=== PATIENT | male | born 1975 | race Two or more races ===

== ENCOUNTER 2025-01-28 15:53 | Emergency (ER) | payer MEDICAID, SELFPAY ==
[2025-01-28 16:01] VITALS: BP 164/91; PULSE 81; RESP 18; TEMP 37.4; O2SAT 98; BMI 34.6
--- NOTE | 2025-01-28 16:08 | EDNOTE_ITS ---
ED Male Genitalurinary RME/HPI General Chief complaint: Urogenital-Male Stated complaint: Urinating small amount Time Seen by Provider: 01/28/25 16:04 Arrival date/time: 01/28/25 15:53 RME / HPI RME / HPI Narrative: 49-year-old male patient came in for evaluation regarding acute urinary retention. Patient told me that since early this morning he is having difficulty urinating, it is just dripping urine, severity scant, associated with bladder distention and discomfort. Patient has been having worsening problem with urination for since July. Noticed some swelling to the glans penis. Denies any fever. Denies any dysuria. No vomiting no back pain no other complaints noted no medications taken prior to arrival. Related Data Allergies Allergy/AdvReac Type Severity Reaction Status Date / Time No Known Drug Allergies Allergy Verified 01/28/25 15:58 Review of Systems Review of Systems Narrative Review of Systems: Review of system reviewed and within normal limits except mentioned in HPI ED Exam Narrative Physical exam: VITAL SIGNS: Reviewed. GENERAL APPEARANCE: Alert and interactive, follows commands, no acute distress, HEAD AND FACE: Non-traumatic. ENT: PERRL, pink conjunctivitis, eyelid no trauma, Mucous membrane moist. NECK: Supple, nontender, no nuchal rigidity. CHEST: No tenderness, no crepitus, no paradoxical movement, no retractions. LUNGS: Clear, well ventilated, symmetric, no rales, no wheezing, no ronchi, no stridor, good breath sounds bilaterally. HEART: Regular rate, regular rhythm, no murmur, no gallops. ABDOMEN: Soft, positive bowel sounds, nondistended, no guarding, nontender, no rebound, no masses, RECTAL: Deferred. GENITAL: Suprapubic distention, with discomfort and tenderness, glans penis is slightly swollen, with palpable mass, and the meatus is closed. NEUROLOGICAL: Gross motor function intact sensory function intact, Appropriate for age. MUSCULOSKELETAL: low back nontender, full range of motion. EXTREMITIES: Nontender, full range of motion. SKIN: Color pink, dry, no rash, no lacerations, no abrasions, no contusions. LYMPHATICS: Deferred. Course Quality Measures none Orders Category Date Time Status CT Screening NOW Care 01/28/25 16:51 Active Baez [Urinary Catheter] Care 01/28/25 16:[address] abdomen pelvis w con Stat Exams 01/28/25 16:51 Completed US extremity nonvascular LMTD Stat Exams 01/28/25 16:58 Completed CBC [CBC] Stat Lab 01/28/25 16:12 Completed CMP [Comprehensive Metabolic Panel] Stat Lab 01/28/25 16:12 Completed UA, C/S IF [Urinalysis, C/S if Indicated] Stat Lab 01/28/25 16:57 Completed Vital Signs Vital signs: Vital Signs Temperature 99.3 F 01/28/25 16:01 Pulse Rate 81 01/28/25 16:01 Respiratory Rate 18 01/28/25 16:01 Blood Pressure 164/91 H 01/28/25 16:01 Pulse Oximetry (%) 98 01/28/25 16:01 Oxygen Delivery Method Room Air 01/28/25 16:01 Urogenital - Male MDM Narrative MDM Narrative:: 49-year-old male patient came in for evaluation regarding acute urinary retention. Patient told me that since early this morning he is having difficulty urinating, it is just dripping urine, severity scant, associated with bladder distention and discomfort. Denies any fever. Denies any dysuria. No vomiting no back pain no other complaints noted no medications taken prior to arrival. I have difficulty inserting a Baez catheter used Cypriot 14 Baez, however I was able to advance it. Draining more than 500 cc of clear urine. Patient's laboratory workup all came back unremarkable including ultrasound of the penis did not show anything and CT scan of the abdomen and pelvis also are within normal limits. Results discussed with the patient. Patient was advised to follow-up with urologist. Patient agrees with the plan Patient data External records reviewed:: None Clinical information provided by:: patient Social determinants that could affect healthcare access:: none Patient has the following chronic illnesses:: None How is presenting disease/condition affected by chronic disease/condition?: no chronic disease Evaluation data The following diagnostics were reviewed and interpreted by me:: lab results and radiology exam(s) Lab and/or radiology exams considered but not ordered:: None Interpretation Summary: See results MDM Medications / Prescriptions Medications or Prescriptions considered but not ordered:: None Medication administrations:: None Consultations Consultation(s) initiated? (list below): No Diagnosis Urogenital Male Differential Diagnosis: urinary tract infection, urethritis and other (Acute urinary retention) Most likely diagnosis given after review of the tests above:: Acute urinary retention, urinary meatus problem Admission Indicated Admission indicated?: not indicated Admission Request Was there a request for admission?: No Disposition Plan Disposition Plan: Discharge Discharge Attestation Discharge Attestation: The patient and all family members were given an opportunity to ask questions and understood the discharge instructions. Discharge instructions specifically effects, indications for sooner follow up or return to the emergency department, and the expected course of current diagnosis. Patient condition: Stable Discharge Plan Plan Patient Disposition: HOME (Self Care) Discharge Disposition comment: Stable Problem List Clinical Impression: Acute urinary retention Patient/Caregiver Discharge Instructions Discharge Activity: activity as tolerated Education Materials: ED Urinary Retention, Male Additional Instructions: Thank you for the opportunity for serving you today. You are stable for discharged . You are advised to: Follow-up with your PCP in 1 to 2 days Return to ED for worsening of symptoms Increase oral fluids As your PCP to refer you to a urologist regarding your urethral meatus problem, and further evaluation. Post Baez catheter care Print Language: Albanian Stand Alone Forms: Carlene Award Info., Patient Portal Info Letter HAJA/MARLEY Supervising Physician HJAA/MARLEY Supervising Physician: MD Yoko
[2025-01-28 16:26] LABS: Basophils # (Auto) 0.0 Thou/mm3 (0.0-0.2); Basophils % (Auto) 0 % (0-2.5); Eosinophils # (Auto) 0.1 Thou/mm3 (0.0-0.5); Eosinophils % (Auto) 1 % (0-10); Hematocrit 41.0 % (41.0-53.0); Hemoglobin 13.8 g/dL (13.5-16.0); Immature Granulocytes Auto 0.03 Thou/mm3 (0.00-0.00); Lymphocytes # (Auto) 1.8 Thou/mm3 (1.0-4.8); Lymphocytes % (Auto) 18 % (10-50); Mean Corpuscular HGB Conc 33.7 g/dl (31.0-37.0); Mean Corpuscular Hemoglobin 28.4 pg (25.0-35.0); Mean Corpuscular Volume 84 fL (80-100); Monocytes # (Auto) 0.5 Thou/mm3 (0.0-0.8); Monocytes % (Auto) 5 % (0-12); Neutrophils # (Auto) 7.5 Thou/mm3 (1.8-7.7); Neutrophils % (Auto) 75 % (37-80); Nucleated Red Blood Cell # 0.00 Thou/mm3 (0.00-0.00); Nucleated Red Blood Cell % 0 /100 WBC (0); Platelet Count 254 Thou/mm3 (140-440); RDW Standard Deviation 37.9 fL (35.1-43.9); Red Blood Count 4.86 Miln/mm3 (4.50-5.90); White Blood Count 10.0 Thou/mm3 (3.8-10.6)
[2025-01-28 16:47] LABS: Alanine Aminotransferase 21 U/L (10-49); Albumin, Serum 4.8 gm/dL (3.5-5.0); Albumin/Globulin Ratio 1.7 (1.2-2.2); Alkaline Phosphatase 125 U/L (46-116); Anion Gap 9 (7-16); Aspartate Amino Transferase 19 U/L (0-34); BUN/Creatinine Ratio 16 Ratio (12-20); Bilirubin,Total 0.5 mg/dL (0.3-1.2); Blood Urea Nitrogen 13 mg/dL (9-23); Calcium 9.0 mg/dL (8.3-10.6); Calcium (Corrected) 9.0 mg/dL (8.5-10.1); Carbon Dioxide 26.6 mMol/L (20.0-31.0); Chloride 105 mMol/L (98-107); Creatinine (Component) 0.8 mg/dL (0.6-1.3); Estimated Creatinine Clearance 126.1 mL/min (>60); Globulin 2.9 gm/dL (2.3-3.5); Glucose 148 mg/dL (74-106); Osmolality,Calculated 284 (275-295); Potassium 3.6 mMol/L (3.4-5.1); Sodium 141 mMol/L (136-145); Total Protein 7.7 gm/dL (5.7-8.2); eGFR > 60 See Note
--- NOTE | 2025-01-28 16:51 | XR_ITS ---
Examination: CT abdomen with intravenous contrast CT pelvis with intravenous contrast 2-D coronal reconstructions 2-D sagittal reconstructions Date and time of exam:January 28, 2025 1931 hours INDICATIONS: Difficulty urinating today. CTDI: vol (mGy) 25.5 DLP: (mGycm) 1030 Technique: Multiple axial sections of the abdomen and pelvis have been obtained. 64 slice high-resolution scanner used. 3 mm axial sections have been obtained, post intravenous injection 60 cc [id number] 2-D sagittal, coronal reconstructions obtained. Low dose protocols were performed. One or more of the following dose reduction techniques were used; automated exposure control, adjustment of the mA and/or KV according to patient size, use of iterative reconstruction technique. Findings: No focal liver or splenic lesions No gallstones No pancreatic mass No renal or ureteral calculi, no hydronephrosis Aorta normal size Normal appendix No bowel obstruction or diverticulitis Baez catheter within the bladder, significant bladder wall thickening measuring up to 19 mm 2 mm calcification likely in the prostatic urethra sagittal image 112 IMPRESSION: No renal or ureteral calculi, no hydronephrosis is Normal appendix Significant thickening of the bladder wall, likely cystitis 2 mm calcification, likely in the prostatic urethra adjacent to the urinary Baez catheter
--- NOTE | 2025-01-28 16:58 | XR_ITS ---
Examination: Ultrasound soft tissue extremity, penis TECHNIQUE: Longoria scale sonographic images soft tissue pain as Date and time: January 28, 2025 1704 hours INDICATIONS: Unable to urinate today, penis swelling 6 months FINDINGS: Urinary catheter seen within the penile urethra No penile soft tissue mass, no abscess IMPRESSION: No penile soft tissue mass or abscess Recommend CT scan abdomen and pelvis follow-up including delayed postcontrast bladder images to include the penis
[2025-01-28 17:09] LABS: Collection Type, Urine Clean Catch
[2025-01-28 17:14] LABS: Bilirubin,Urine Negative (Negative); Blood,Urine Negative (Negative); Clarity,Urine Clear (Clear/Hazy); Color,Urine Lt-Yellow (Lt Yel-Yel); Culture Indicated,Urine Not Indicated; Glucose, Urine Negative (Negative); Hyaline Casts,Urine < 1 /hpf (0-1); Ketones,Urine Negative (Negative); Leukocyte Esterase,Urine Negative (Negative); Nitrite,Urine Negative (Negative); PH,Urine 6.0 (5.0-7.0); Protein,Urine Negative (Neg - Trace); RBC,Urine 1 /hpf (0-3); Specific Gravity,Urine 1.023 (1.001-1.035); Squamous Epithelial Cell,Urine 1 /hpf (0-5); Urobilinogen,Urine Negative mg/dL (0.0-1.0); WBC,Urine 1 /hpf (0-5)
== END 2025-01-28 20:24 | disposition home or self-care (01) ==
LOC: SERX 20:42
PROVIDERS: Nurse Practitioner Family; Emergency Provider Emergency Medicine
DX: R33.9 Retention of urine, unspecified (principal); N32.89 Other specified disorders of bladder
CPT/HCPCS: 36415; 74177; 76882; 80053; 81001; 85025; 99283; A4649; Q9967

== ENCOUNTER 2025-03-16 09:03 | Emergency (ER) | payer MEDICAID, SELFPAY ==
[2025-03-16 09:04] VITALS: BMI 34.7
[2025-03-16 09:13] VITALS: BP 151/87; PULSE 76; RESP 18; TEMP 37.2; O2SAT 97
--- NOTE | 2025-03-16 09:27 | EDNOTE_ITS ---
ED Male Genitalurinary RME/HPI General Stated complaint: PROBLEMS WITH URINATION THIS AM Time Seen by Provider: 03/16/25 09:08 Source: patient Arrival date/time: 03/16/25 09:03 49-year-old male with a history of BPH presents to the emergency room with a chief complaint of difficulty urinating this morning. Mode of arrival: ambulatory Limitations: no limitations Related Data Allergies Allergy/AdvReac Type Severity Reaction Status Date / Time No Known Drug Allergies Allergy Verified 03/16/25 09:07 Review of Systems Review of Systems Systems Reviewed: All systems reviewed, normal except as documented Constitutional Constitutional: Reports system reviewed and no additional complaints, except as documented, Denies fatigue, Denies fever(s), Denies headache(s) and Denies weakness Eyes Eyes: Reports system reviewed and no additional complaints, except as documented, Denies blurry vision and Denies change in vision ENT Ears, Nose, Mouth, and Throat: Reports system reviewed and no additional complaints, except as documented, Denies otalgia, Denies headache(s), Denies nasal congestion, Denies throat swelling and Denies vertigo Cardiovascular Cardiovascular: Reports system reviewed and no additional complaints, except as documented, Denies chest pain, Denies dyspnea and Denies dyspnea on exertion Respiratory Respiratory: Reports system reviewed and no additional complaints, except as documented, Denies chest congestion, Denies cough, Denies dyspnea, Denies dyspnea on exertion and Denies wheezing Gastrointestinal Gastrointestinal: Reports system reviewed and no additional complaints, except as documented, Denies abdominal pain, Denies cramping, Denies nausea and Denies vomiting Genitourinary Genitourinary: Reports system reviewed and no additional complaints, except as documented, Reports difficulty urinating, Denies dysuria and Denies hematuria Musculoskeletal Musculoskeletal: Reports system reviewed and no additional complaints, except as documented and Denies back pain Integumentary/Breasts Skin/Breast: Reports system reviewed and no additional complaints, except as documented and Denies wounds Neurologic Neurologic: Reports system reviewed and no additional complaints, except as documented, Denies confusion, Denies headache(s), Denies lack of coordination, Denies vertigo and Denies weakness Psychiatric Psychiatric: Reports system reviewed and no additional complaints, except as documented, Denies anxiety, Denies confusion, Denies depression, Denies paranoia, Denies suicidal ideation and Denies tactile hallucinations Endocrine Endocrine: Reports system reviewed and no additional complaints, except as documented and Denies fatigue Hematologic/Lymphatic Hematologic/Lymphatic: Reports system reviewed and no additional complaints, except as documented and Denies lymphadenopathy Allergic/Immunologic Allergic/Immunologic: Reports system reviewed and no additional complaints, except as documented, Denies throat swelling, Denies urticaria and Denies wheezing ED Exam General Limitations: Present no limitations General appearance: Present alert and in no apparent distress Head Head exam: Present atraumatic Eye Eye exam: Present normal appearance, PERRL and EOMI ENT ENT exam: Present normal exam, normal oropharynx and mucous membranes moist Neck Neck exam: Present normal inspection, full ROM and trachea midline Chest Chest inspection: Present normal inspection and symmetric chest wall rise Respiratory Respiratory exam: Present normal lung sounds bilaterally Cardiovascular Cardiovascular exam: Present regular rate, normal rhythm and normal heart sounds Abdominal Exam Abdominal exam: Present soft and normal bowel sounds; Absent distention, tenderness, guarding or rebound Extremities Exam Extremities exam: Present normal inspection and full ROM Back Exam Back exam: Present normal inspection and full ROM Neurological Exam Neurological exam: Present alert, oriented X3 and CN II-XII intact Psychiatric Psychiatric exam: Present normal affect and normal mood Skin Skin exam: Present warm, dry, intact and normal color Course Quality Measures none Orders Category Date Time Status Baez [Urinary Catheter] QS Care 03/16/25 09:21 Active Baez to Leg Bag Routine Care 03/16/25 09:21 Ordered UA, C/S IF [Urinalysis, C/S if Indicated] Stat Lab 03/16/25 09:21 Ordered Lidocaine Jelly 2% Urojet [Xylocaine Jelly 2% Urojet] Med 03/16/25 09:21 Discontinued See Dose Instructions TOP X1 ONE Vital Signs Vital signs: Vital Signs Temperature 98.9 F 03/16/25 09:13 Pulse Rate 76 03/16/25 09:13 Respiratory Rate 18 03/16/25 09:13 Blood Pressure 151/87 H 03/16/25 09:13 Pulse Oximetry (%) 97 03/16/25 09:13 Oxygen Delivery Method Room Air 03/16/25 09:13 Urogenital - Male MDM Narrative MDM Narrative:: 49-year-old male with a history of BPH presents to the emergency room with a chief complaint of difficulty urinating this morning. Patient is hemodynamically stable and in no apparent distress Physical examination shows urinary retention. Patient states he is unable to urinate since this morning. A Baez catheter was ordered for the patient but right before Baez catheter insertion patient states he is able to urinate and would not like a urinary catheter. Patient states he passed a small blood clot that thinks was causing this. Urinalysis was ordered but the patient states he has an appointment with his urologist at noon that he does not want to miss. Patient was educated to follow-up with urologist and return to the emergency room for any evidence of worsening signs or symptoms or if his acute urinary retention returns. Patient was discharged and educated to follow-up with primary care provider in the next 24 to 48 hours and return to the emergency room for any evidence of worsening signs or symptoms Patient data External records reviewed:: [facility] previous records Clinical information provided by:: patient Social determinants that could affect healthcare access:: none Patient has the following chronic illnesses:: BPH How is presenting disease/condition affected by chronic disease/condition?: exacerbated by Evaluation data The following diagnostics were reviewed and interpreted by me:: lab results and radiology exam(s) Lab and/or radiology exams considered but not ordered:: Labs and radiology exams considered and ordered Interpretation Summary: N/A Medications / Prescriptions Medications or Prescriptions considered but not ordered:: Medication given Medication administrations:: Medication Administration History Discontinued Medications Lidocaine HCl (Lidocaine Jelly 2% (Urojet) 10 Ml Tube) 0 ml TOP X1 ONE Stop: 03/16/25 09:22 Last Admin: 03/16/25 09:41 Dose: Not Given Documented By: TANNER Non-Admin Reason: Patient Refused Medication given Consultations Consultation(s) initiated? (list below): No Diagnosis Urogenital Male Differential Diagnosis: urinary tract infection, prostatitis and acute retention of urine Most likely diagnosis given after review of the tests above:: Acute retention of urine Admission Indicated Admission indicated?: not indicated Admission Request Was there a request for admission?: No Disposition Plan Disposition Plan: Discharge Discharge Attestation Discharge Attestation: The patient and all family members were given an opportunity to ask questions and understood the discharge instructions. Discharge instructions specifically effects, indications for sooner follow up or return to the emergency department, and the expected course of current diagnosis. Patient condition: Stable Discharge Plan Plan Patient Disposition: HOME (Self Care) Discharge Disposition comment: Stable Problem List Clinical Impression: Acute urinary retention Patient/Caregiver Discharge Instructions Education Materials: ED Urinary Retention, Male Additional Instructions: Por favor, acuda a sheyla nathalia de seguimiento con mora m?dico de cabecera en las pr?ximas 24 a 48 horas. Por favor, acuda a mora nathalia con mora ur?logo hoy a las 12. Mora retenci?n urinaria se resolvi? por s? ritu. Si vuelve a presentar retenci?n urinaria, acuda a urgencias de inmediato. Si observa cualquier signo de empeoramiento de los signos o s?ntomas, acuda a urgencias de inmediato. Print Language: Irish Stand Alone Forms: Carlene Award Info., Patient Portal Info Letter PA/ASSISTANT PASSENGER LOCOMOTIVE ENGINEER Supervising Physician PA/ASSISTANT PASSENGER LOCOMOTIVE ENGINEER Supervising Physician: Dr. Wei
--- NOTE | 2025-03-16 09:53 | PC.NURSE ---
PT WAS ABLE TO URINATE BEFORE LION CATHETER WAS INSERTED, PT URINATED INSIDE TRASH CAN IN ROOM
== END 2025-03-16 09:55 | disposition home or self-care (01) ==
LOC: SERX 09:58
PROVIDERS: Emergency Provider Emergency Medicine; PCP Physician Assistant
DX: N40.1 Benign prostatic hyperplasia with lower urinary tract symptoms (principal); R33.8 Other retention of urine; Z53.29 Procedure and treatment not carried out because of patient's decision for other reasons
CPT/HCPCS: 81001; 99284; A4314